=== PATIENT | female | born 1990 | race Caucasian/White ===

== ENCOUNTER 2017-02-13 03:15 | Inpatient (IN) | payer OTHER ==
[2017-02-13] MEDS ORDERED: Sodium Chloride 0.9% 1,000 ML IV STA (03:49)
--- NOTE | 2017-02-13 03:57 | ED PDOC ---
Syncope/Near Syncope/Dizziness Chief Complaint (Provider): Weakness History Per: Patient Additional Complaint(s): PCP: None Chief Complaint: vomiting/ Abdominal pain HPI: 26 years old female with Hx of IDDM, presents to ED with complaint sof feeling weak. Pt was seen at [facility] on the 02/11/17 and subsequently admitted into the ICU for DKA. Pt reports signing out AMA because she was feeling better; however, when she got home she continued to feel weak and nauseous. No fever or chills, no vomiting, diarrhea or SOB. PMH: IDDM PSH: Cesarian Section X2; insulin Pump insertion; Right thigh abscess with I&D in 2006 SH: Light smoker; drinks Alcohol socially; No illegal drug use; live with family FH: no known family hx Allergies: NKDA <Marielle Lucio A - Last Filed: 02/13/17 05:19> <Minor Bishop - Last Filed: 02/14/17 13:54> Time Seen by Provider: 02/13/17 03:40 Chief Complaint (Nursing): Weakness/Neurological Deficit Past Medical History Reviewed: Nursing Documentation, Vital Signs Vital Signs: Last Vital Signs Temp 98.6 F 02/13/17 03:31 Pulse 96 H 02/13/17 03:31 Resp 26 H 02/13/17 03:31 BP 108/64 02/13/17 03:31 Pulse Ox 100 02/13/17 03:31 - Medical History PMH: Diabetes (Type 1) Denies: Chronic Kidney Disease - Surgical History Surgical History: - Family History Family History: States: Unknown Family Hx - Living Arrangements Living Arrangements: With Family - Social History Current smoker - smoking cessation education provided: No Alcohol: Social Drugs: Denies - Immunization History Hx Tetanus Toxoid Vaccination: Yes Hx Influenza Vaccination: No Hx Pneumococcal Vaccination: No <Marielle Lucio A - Last Filed: 02/13/17 05:19> Vital Signs: Last Vital Signs Temp 98.3 F 02/14/17 12:00 Pulse 88 02/14/17 12:00 Resp 13 02/14/17 12:00 BP 121/82 02/14/17 08:00 Pulse Ox 95 02/14/17 08:00 <Minor Bishop Y - Last Filed: 02/14/17 13:54> - Home Medications Home Medications: Ambulatory Orders Medication Instructions Recorded Amoxicillin [Amoxil 500 mg Cap] 500 mg PO BID 02/13/17 Ibuprofen [Motrin Tab] 800 mg PO BID PRN 02/13/17 Insulin Lispro [humALOG] 10 - 20 units SC TIDPC 02/13/17 - Allergies Allergies/Adverse Reactions: Allergies Allergy/AdvReac Type Severity Reaction Status Date / Time No Known Allergies Allergy Verified 02/13/17 03:31 Review of Systems ROS Statement: Except As Marked, All Systems Reviewed And Found Negative Constitutional: Positive for: Weakness Gastrointestinal: Positive for: Nausea <Marielle Lucio - Last Filed: 02/13/17 05:19> Physical Exam - Reviewed Nursing Documentation Reviewed: Yes Vital Signs Reviewed: Yes - Physical Exam Appears: Positive for: Non-toxic, No Acute Distress, Uncomfortable Head Exam: Positive for: ATRAUMATIC, NORMAL INSPECTION, NORMOCEPHALIC Skin: Positive for: Normal Color, Warm, DRY Eye Exam: Positive for: EOMI, Normal appearance, PERRL ENT: Positive for: Normal ENT Inspection Neck: Positive for: Normal, Painless ROM Cardiovascular/Chest: Positive for: Regular Rate, Rhythm Respiratory: Positive for: CNT, Normal Breath Sounds Gastrointestinal/Abdominal: Positive for: Normal Exam, Bowel Sounds, Soft Back: Positive for: Normal Inspection Extremity: Positive for: Normal ROM Neurologic/Psych: Positive for: Alert, Oriented <Marielle Lucio A - Last Filed: 02/13/17 05:19> - Laboratory Results Result Diagrams: 02/13/17 02:43 02/13/17 02:43 - ECG O2 Sat by Pulse Oximetry: 100 <Marielle Lucio A - Last Filed: 02/13/17 05:19> - Laboratory Results Result Diagrams: 02/14/17 04:45 02/14/17 04:45 <Minor Bishop - Last Filed: 02/14/17 13:54> Medical Decision Making Medical Decision Making: IV access established and diagnostics ordered IVF started Finger stick 383 After receiving ABG results, pt started immediately on insulin with drip and fluid hydration. Pt in critical condition requiring ICU placement. DW Dr Roman Hospitalist for ICU and Dr Braun [facility] Service oncall. ED MD made aware <DavidanibalmaryamgaryValerieMarielle A - Last Filed: 02/13/17 05:19> Disposition - Patient ED Disposition Is Patient to be Admitted: Yes - Disposition Disposition Time: 05:20 - POA Present On Arrival: Poor Glycemic Control <Marielle Lucio - Last Filed: 02/13/17 05:19> <Minor Bishop - Last Filed: 02/14/17 13:54> - Clinical Impression Clinical Impression: DKA (diabetic ketoacidoses) - Disposition Condition: STABLE
[2017-02-13 04:48] LABS: BASO # 0.1 K/uL (0.0-0.2); EOS # 0.1 K/uL (0.0-0.7); HEMATOCRIT 39.4 % (34.0-47.0); LYMPH # 1.6 K/uL (1.0-4.3); LYMPH % 23.5 % (20.0-40.0); MEAN CELL VOLUME 95.4 fl (81.0-99.0); MEAN CORPUSCULAR HEMOGLOBIN 29.8 pg (27.0-31.0); MEAN CORPUSCULAR HGB CONC 31.2 g/dL (33.0-37.0); MEAN PLATELET VOLUME 7.4 fl (7.2-11.7); MONO # 0.4 K/uL (0.0-0.8); MONO % 5.9 % (0.0-10.0); NEUT # 4.5 K/uL (1.8-7.0); NEUT % 67.6 % (50.0-75.0); NRBC % 0.1 % (0.0-0.0); RED CELL DISTRIBUTION WIDTH 15.8 % (11.5-14.5); WHITE BLOOD COUNT 6.6 K/uL (4.8-10.8)
[2017-02-13] MEDS ORDERED: Insulin Regular 100 units/ml IV STA (04:59)
[2017-02-13 05:00] LABS: ABG ALLEN TEST YES; ARTERIAL BLOOD GAS HCO3 10.1 mmol/L (21-28); ARTERIAL BLOOD GAS PH 7.21 (7.35-7.45); ARTERIAL BLOOD GAS PO2 127 mm/Hg (80-100)
[2017-02-13 05:01] LABS: POTASSIUM 4.8 MMOL/L (3.6-5.0)
[2017-02-13 05:04] LABS: ALKALINE PHOSPHATASE 127 U/L (38-126); ALT/SGPT 67 U/L (9-52); AST/SGOT 55 U/L (14-36); BILIRUBIN,TOTAL 0.7 mg/dl (0.2-1.3); BLOOD UREA NITROGEN 6 mg/dl (7-17); CALCIUM 8.7 mg/dL (8.4-10.2); GFR AFRICAN-AMERICAN > 60; GLUCOSE,RANDOM 385 mg/dL (65-105); TOTAL PROTEIN 6.8 G/DL (6.3-8.2)
[2017-02-13 05:11] LABS: CARBON DIOXIDE 10 mmol/L (22-30)
[2017-02-13 05:12] LABS: ALB/GLOB RATIO 1.3 (1.0-2.1); CHLORIDE 103 mmol/L (98-107); SODIUM 136 mmol/l (132-148)
[2017-02-13] MEDS ORDERED: Glucagon Recombinant 1 mg Inj IM PRN (06:11)
[2017-02-13] MEDS ORDERED: Dextrose 50% SYRINGE Inj (50 ml) IV PRN (06:11)
--- NOTE | 2017-02-13 06:20 | CP.PCM.CON ---
History of Present Illness - History of Present Illness History of Present Illness: PCP: [facility] Chief Complaint: Generalized weakness HPI: 26 years old female with Hx of IDDM, [facility] She signed AMA on the 02/11/17. She now comes with generalized weakness and nausea. She was being treated for an URI with Amoxicillin prior to being admitted at [facility]. PMH: IDDM PSH: Cesarian Section X2; insulin Pump insertion; Right thigh abscess with I&D in 2006 SH: Light smoker; drinks Alcohol socially; No illegal drug use; live with family FH: no known family hx Allergies: NKDA Review of Systems - Constitutional Constitutional: Weakness. absent: Anorexia, Chills, Fatigue, Fever - EENT Eyes: absent: Diplopia, Floaters, Photophobia, Requires Corrective Lenses Ears: absent: Decreased Hearing, Ear Discharge, Ear Pain, Tinnitus Nose/Mouth/Throat: absent: Epistaxis, Nasal Congestion, Nasal Discharge - Cardiovascular Cardiovascular: absent: Chest Pain, Dyspnea, Edema - Respiratory Respiratory: Cough. absent: Wheezing, Stridor, Chest Congestion - Gastrointestinal Gastrointestinal: Nausea. absent: Constipation, Diarrhea, Vomiting - Genitourinary Genitourinary: absent: Dysuria, Flank Pain, Hematuria, Urinary Frequency - Musculoskeletal Musculoskeletal: Muscle Weakness. absent: Abnormal Gait, Arthralgias, Numbness - Integumentary Integumentary: absent: Pruritus, Rash, Skin Ulcer, Sores, Striae, Swelling - Neurological Neurological: Weakness. absent: Confusion, Dizziness, Focal Weakness, Vertigo - Psychiatric Psychiatric: Depression. absent: Anxiety - Endocrine Endocrine: absent: Palpitations, Polydipsia, Polyphagia, Polyuria - Hematologic/Lymphatic Hematologic: absent: Easy Bleeding, Easy Bruising Past Patient History - Infectious Disease Hx of Infectious Diseases: None - Past Medical History & Family History Past Medical History?: Yes - Past Social History Smoking Status: Never Smoked Chewing Tobacco Use: No Cigar Use: No Alcohol: Social Drugs: Denies Home Situation {Lives}: With Family - CARDIAC Hx Cardiac Disorders: No - PULMONARY Hx Respiratory Disorders: No - NEUROLOGICAL Hx Neurological Disorder: No - HEENT Hx HEENT Problems: No - RENAL Hx Chronic Kidney Disease: No - ENDOCRINE/METABOLIC Hx Endocrine Disorders: Yes Hx Diabetes Mellitus Type 1: Yes - HEMATOLOGICAL/ONCOLOGICAL Hx Blood Disorders: No - INTEGUMENTARY Hx Dermatological Problems: No - MUSCULOSKELETAL/RHEUMATOLOGICAL Hx Falls: No - GASTROINTESTINAL Hx Gastrointestinal Disorders: No - GENITOURINARY/GYNECOLOGICAL Hx Genitourinary Disorders: No - PSYCHIATRIC Hx Substance Use: No - SURGICAL HISTORY Hx Surgeries: Yes Hx Section: Yes (x2) Other/Comment: rt thigh abcess I&D (2006) / insulin pump - ANESTHESIA Hx Anesthesia: Yes Hx Anesthesia Reactions: No Hx Malignant Hyperthermia: No Meds Allergies/Adverse Reactions: Allergies Allergy/AdvReac Type Severity Reaction Status Date / Time No Known Allergies Allergy Verified 02/13/17 03:31 - Medications Medications: Current Medications Dextrose (Dextrose 50% Inj) 0 ml IV STAT PRN; Protocol PRN Reason: Hyglycemia Protocol Dextrose (Glutose 15) 0 gm PO ONCE PRN; Protocol PRN Reason: Hypoglycemia Protocol Glucagon (Glucagen Diagnostic Kit) 0 mg IM STAT PRN; Protocol PRN Reason: Hypoglycemia Protocol Insulin Human Regular 100 (units/ Sodium Chloride) 101 mls @ 0 mls/hr IV .Q0M SUE; Per Protocol PRN Reason: Protocol Physical Exam - Constitutional Appears: No Acute Distress - Head Exam Head Exam: ATRAUMATIC, NORMAL INSPECTION, NORMOCEPHALIC - Eye Exam Eye Exam: EOMI, Normal appearance Pupil Exam: NORMAL ACCOMODATION, PERRL - ENT Exam ENT Exam: Mucous Membranes Moist, Normal Exam, Normal External Ear Exam, Normal Oropharynx - Neck Exam Neck exam: Positive for: Full Rom, Normal Inspection. Negative for: Lymphadenopathy, Tenderness - Respiratory Exam Respiratory Exam: Clear to Auscultation Bilateral. absent: Rales, Rhonchi, Wheezes - Cardiovascular Exam Cardiovascular Exam: REGULAR RHYTHM, RRR, +S1, +S2. absent: Gallop, JVD - GI/Abdominal Exam GI & Abdominal Exam: Normal Bowel Sounds, Soft. absent: Mass, Organomegaly, Tenderness - Rectal Exam Rectal Exam: Deferred - Extremities Exam Extremities exam: Positive for: full ROM, normal inspection. Negative for: calf tenderness, pedal edema - Back Exam Back exam: NORMAL INSPECTION. absent: CVA tenderness (L), CVA tenderness (R) - Neurological Exam Neurological exam: Alert, CN II-XII Intact, Motor Sensory Deficit, Oriented x3, Reflexes Normal - Skin Skin Exam: Dry, Intact, Normal Color, Warm Results - Vital Signs Recent Vital Signs: Last Vital Signs Temp 98.6 F 02/13/17 03:31 Pulse 96 H 02/13/17 03:31 Resp 26 H 02/13/17 03:31 BP 108/64 02/13/17 03:31 Pulse Ox 100 02/13/17 05:21 - Labs Result Diagrams: 02/13/17 02:43 02/13/17 02:43 Assessment & Plan - Assessment and Plan (Free Text) Plan: 26 years old female with Hx of IDDM, [facility] She signed AMA on the 02/11/17. She now comes with generalized weakness and nausea. She was being treated for an URI with Amoxicillin prior to being admitted at [facility]. #. DKA due to non compliance with medication - Admit to ICU - IV Regular Insulin drip according to protocol - Hourly accuchecks - IV Fluid Normal Saline 100mls/hr and Change to D5NS when the Blood Glucose falls below 250mg/dl #. IDDM with hyperglycemia - Teat as above #. Severe AG Metabolic Acidosis - IV Fluids - Treat DKA - Fllow ABG #. DVT prophylaxis with Lovenox #. Code Status: Full - Date & Time Date: 02/13/17 Time: :
[2017-02-13 06:22] LABS: RBC URINE < 1 /hpf (0-3); URINE BILIRUBIN NEGATIVE (NEGATIVE); URINE BLOOD NEGATIVE (NEGATIVE); URINE COLOR YELLOW (YELLOW); URINE GLUCOSE (UA) >=500 mg/dL (Normal); URINE KETONE 80 mg/dL (NEGATIVE); URINE LEUKOCYTE ESTERASE NEG Leu/uL (Negative); URINE PROTEIN 30 mg/dL (NEGATIVE); URINE UROBILINOGEN 0.2-1.0 mg/dL (0.2-1.0); WBC URINE 1 /hpf (0-5)
[2017-02-13] MEDS: Sodium Chloride 0.9% 1,000 ML IV SCH ×2 (06:50→18:25)
[2017-02-13 06:59] VITALS: BMI 20.7
[2017-02-13] MEDS: Enoxaparin 40 mg Syringe SC SCH (08:42)
[2017-02-13 10:37] LABS: VENOUS BLOOD GAS BASE EXCESS -11.9 mmol/L (0.0-2.0); VENOUS BLOOD GAS PCO2 24 mmHg (40-60); VENOUS BLOOD PH 7.32 (7.32-7.43)
[2017-02-13 10:48] LABS: HEMATOCRIT 35.9 % (34.0-47.0); MEAN CELL VOLUME 91.8 fl (81.0-99.0); MEAN CORPUSCULAR HEMOGLOBIN 30.2 pg (27.0-31.0); MEAN CORPUSCULAR HGB CONC 32.9 g/dL (33.0-37.0); RED CELL DISTRIBUTION WIDTH 14.8 % (11.5-14.5); WHITE BLOOD COUNT 6.6 K/uL (4.8-10.8)
[2017-02-13 11:54] LABS: ALB/GLOB RATIO 1.2 (1.0-2.1); ALKALINE PHOSPHATASE 136 U/L (38-126); ALT/SGPT 68 U/L (9-52); AST/SGOT 59 U/L (14-36); BILIRUBIN,TOTAL 0.5 mg/dl (0.2-1.3); BLOOD UREA NITROGEN 5 mg/dl (7-17); CALCIUM 8.4 mg/dL (8.4-10.2); CARBON DIOXIDE 12 mmol/L (22-30); CHLORIDE 106 mmol/L (98-107); GFR AFRICAN-AMERICAN > 60; GLUCOSE,RANDOM 326 mg/dL (65-105); MAGNESIUM 1.6 MG/DL (1.6-2.3); POTASSIUM 3.9 MMOL/L (3.6-5.0); SODIUM 138 mmol/l (132-148); TOTAL PROTEIN 6.4 G/DL (6.3-8.2)
[2017-02-13] MEDS ORDERED: Potassium Phosphate 15 MMOLE in Dextrose 5% In Water 250 ML IV STA (12:08)
[2017-02-13] MEDS ORDERED: Magnesium Sulfate 1 gm in D5W 1 GM/100 ML BAG IVPB ONE (12:08)
[2017-02-13] MEDS: Potassium Chl 40 mEq in D5-NS 1,000 ML IV SCH ×2 (13:57→23:01)
[2017-02-13] MEDS ORDERED: Sodium Chloride 0.9% 500 ML IV ONE (16:45)
[2017-02-13 17:12] LABS: ALKALINE PHOSPHATASE 108 U/L (38-126); ALT/SGPT 62 U/L (9-52); AST/SGOT 59 U/L (14-36); BILIRUBIN,TOTAL 0.2 mg/dl (0.2-1.3); BLOOD UREA NITROGEN 5 mg/dl (7-17); CALCIUM 8.1 mg/dL (8.4-10.2); CARBON DIOXIDE 17 mmol/L (22-30); CHLORIDE 107 mmol/L (98-107); GFR AFRICAN-AMERICAN > 60; GLUCOSE,RANDOM 122 mg/dL (65-105); POTASSIUM 4.1 MMOL/L (3.6-5.0); SODIUM 138 mmol/l (132-148); TOTAL PROTEIN 6.1 G/DL (6.3-8.2)
[2017-02-13 17:18] LABS: ALB/GLOB RATIO 1.1 (1.0-2.1)
--- NOTE | 2017-02-13 17:55 | CON ---
DATE: 02/13/2017 LOCATION: ICU room 431. HISTORY OF PRESENT ILLNESS: This is a 26-year-old female, very well known to me from previous [facility] hospital readmissions in diabetic ketoacidosis and has once again been readmitted now with general ized body weakness and evaluated to be in DKA and is currently receiving vigorous IV hydration and in tensive insulin therapy with an insulin drip infusion as given. PAST MEDICAL HISTORY: History of type 1 insulin-dependent diabetes since early head start director and current ly on a combination of Humalog given at a variable dose of 5-10 units t.i.d. and Levemir given as 10- 20 units at bedtime. No recent home glucose monitoring has been undertaken and the patient has been very poorly adherent to her insulin regimen. She was previously on an insulin pump, which was discon tinued because of insurance constraints. FAMILY HISTORY: Positive for hypertension and diabetes. SOCIAL HISTORY: The patient has 2 very young children and lives with her mother, admits to smoking h césar a pack a day for 7 years now and admits to social use of alcohol. No other illicit drug use. REVIEW OF SYSTEMS: Admits to generalized body weakness with easy fatigability and tiredness and subo ptimal energy level with progressively worsening dizziness and lightheadedness, prompting this admiss ion. No precordial chest pains, but admits to pleuritic right-sided chest pain with progressive shor tness of breath, especially on exertion. Her oral intake is suboptimal and variable with nausea, dys pepsia and episodic vomiting episodes. Also, admits to marked polyuria, nocturia and polydipsia. PHYSICAL EXAMINATION: GENERAL: This is a female in no apparent distress. VITAL SIGNS: Blood pressure of 130/80, pulse of 100 beats per minute and regular, temperature 98, re spirations 20. Height is 5 feet 3 inches, weight is 117 pounds. HEENT: Head normocephalic. Eyes anicteric with pink conjunctivae. Fundoscopy not possible at this time. Ears, nose and throat otherwise normal. NECK: Supple. Thyroid gland is normal size. No carotid bruits. No cervical adenopathy. CARDIOPULMONARY: Some adynamic precordium. S1, S2 rapid and regular. LUNGS: Clear to auscultation. ABDOMEN: Flat, soft with positive bowel sounds. EXTREMITIES: No peripheral edema. Pulses are +2 bilaterally. LABORATORY DATA: The chemistry showed a BUN of 6, sodium 136, potassium 4.8, chloride 103, CO2 is 10 , glucose is 385 and creatinine 0.6. Her glucose levels have ranged from 191 to 343 mg/dL. ASSESSMENT: This is a 26-year-old female with uncontrolled and decompensated type 1 insulin-dependen t diabetes with very poor adherence to her insulin regimen and glucose monitoring, presenting here wi th diabetic ketoacidosis and dehydration with previous readmissions for diabetic ketoacidosis as note d. PLAN OF MANAGEMENT: As discussed with the patient and the staff, we will continue the current insul in drip infusion until her bicarbonate is at least above 15 and we will continue the insulin drip wit h hourly glucose testing to be undertaken. We will also continue the vigorous IV hydration and will obtain serial chemistries and supplement accordingly as needed. As her oral intake is advanced, then we will start her back on more physiologic basal and bolus insulin drug combination as indicated. He moglobin A1c will be done to confirm glycemic control and baseline thyroid function studies tegan l be ordered. We will obtain serial chemistries and supplement accordingly as needed. We will reinf orce diabetic education and dietary instructions at the time of this admission. Johanny Tapia MD cc: [id number] TT: 02/13/2017 17:55:08 Confirmation # [id number] Dictation # [id number] ln
--- NOTE | 2017-02-13 18:30 | HP ---
CHIEF COMPLAINT: Feeling sick. HISTORY OF PRESENT ILLNESS: This is a 26-year-old female, known case of insulin-dependent diabetes w ith multiple admissions to this hospital and other institutions, who was recently discharged from [facility]. Actually, the patient signed against medical advice and then patient went out, started drinking and did not take her insulin and felt sick, so the patient was brought to Emergency Room and was found to be in DKA and was admitted for further management. REVIEW OF SYSTEMS: Positive for generalized malaise, weakness and feeling sick. Review of systems o therwise is negative for headache, dizziness, syncope, loss of consciousness, chest pain, shortness o f breath, nausea, vomiting, diarrhea, constipation, any new joint or extremity pain. Review of syste ms of all other organ systems is unremarkable. PAST MEDICAL HISTORY: Significant for diabetes type 1. PAST SURGICAL HISTORY: Remarkable for insulin pump on the right thigh and section. PERSONAL HISTORY: The patient is currently a nonsmoker, social alcohol drinker. No substance abuse. MEDICATIONS: As per reconciliation sheet, which was reviewed , although patient is noncompliant with insulin. ALLERGIES: The patient is not allergic to any medication. PHYSICAL EXAMINATION: GENERAL: Well-built, well-nourished 26-year-old female in no acute distress. VITAL SIGNS: Temperature afebrile, pulse 88, respiration 18, blood pressure 136/76. HEENT: Pupils reacting to light. No JVD, no thyromegaly, no lymphadenopathy, no nystagmus. Normocep halic, atraumatic skull. HEART: S1, S2 normal, regular. No significant murmur, gallop or rub is heard. LUNGS: Shows good bilateral air exchange. No rales or rhonchi. ABDOMEN: Soft, nontender, no organomegaly, no fluid. Bowel sounds are plus. EXTREMITIES: No edema, no calf swelling, no tenderness, no acute ischemia. CENTRAL NERVOUS SYSTEM: Essentially unchanged. DIAGNOSTIC DATA: Available diagnostic data reviewed. Telemetry monitoring does not reveal significa nt arrhythmias. WBC 6.6, hemoglobin 12.3, hematocrit 39.3, platelets 390. ABG shows pH 7.21, pCO2 16 , pO2 127, saturation 100%. Sodium 136, potassium 3.8, chloride 103, bicarbonate 10, BUN 6, creatini ne 0.6. Accu-Cheks are 385, 338, 306. ALT 55, ALT 66. Urinalysis is negative. Toxicology is negat sylvia. ADMITTING IMPRESSION: Diabetic ketoacidosis, type 1 diabetes. PLAN: As ordered. Case and plan discussed with patient. Case and plan also discussed with intensiv ist. Osmar Braun MD cc: [phone] TT: 02/13/2017 18:29:58 ln
[2017-02-13 23:13] LABS: BLOOD UREA NITROGEN 7 mg/dl (7-17); CALCIUM 8.4 mg/dL (8.4-10.2); CARBON DIOXIDE 20 mmol/L (22-30); CHLORIDE 108 mmol/L (98-107); GFR AFRICAN-AMERICAN > 60; GLUCOSE,RANDOM 118 mg/dL (65-105); PHOSPHOROUS 2.4 mg/dl (2.5-4.5); POTASSIUM 3.8 MMOL/L (3.6-5.0); SODIUM 141 mmol/l (132-148)
[2017-02-13] MEDS ORDERED: Insulin Detemir 100 Units/ml Inj SC STA (23:26)
[2017-02-13] MEDS ORDERED: POTASSIUM PHOSPHATE PO ONE (23:45)
--- NOTE | 2017-02-14 | CARD ---
APPROVED REPORT EKG Measurement Heart [id number] <Conclusion> Sinus tachycardia Nonspecific ST and T wave abnormality Abnormal ECG
[2017-02-14 05:17] LABS: HEMATOCRIT 32.4 % (34.0-47.0); MEAN CORPUSCULAR HEMOGLOBIN 30.2 pg (27.0-31.0); MEAN CORPUSCULAR HGB CONC 32.8 g/dL (33.0-37.0); RED CELL DISTRIBUTION WIDTH 14.8 % (11.5-14.5); WHITE BLOOD COUNT 4.4 K/uL (4.8-10.8)
[2017-02-14 05:28] LABS: ALB/GLOB RATIO 1.2 (1.0-2.1); ALKALINE PHOSPHATASE 99 U/L (38-126); ALT/SGPT 65 U/L (9-52); AST/SGOT 104 U/L (14-36); BLOOD UREA NITROGEN 6 mg/dl (7-17); CALCIUM 8.3 mg/dL (8.4-10.2); CARBON DIOXIDE 18 mmol/L (22-30); CHLORIDE 110 mmol/L (98-107); GFR AFRICAN-AMERICAN > 60; GLUCOSE,RANDOM 168 mg/dL (65-105); PHOSPHOROUS 2.9 mg/dl (2.5-4.5); POTASSIUM 4.4 MMOL/L (3.6-5.0); SODIUM 141 mmol/l (132-148); TOTAL PROTEIN 5.5 G/DL (6.3-8.2)
[2017-02-14 05:55] LABS: THYROID STIMULATING HORMONE 6.62 mIU/ML (0.46-4.68)
[2017-02-14] MEDS: Potassium Chl 40 mEq in D5-NS 1,000 ML IV SCH (06:29)
[2017-02-14] MEDS: Insulin Lispro (humaLOG) 100 Units/ml Inj SC SCH ×5 (06:30→16:36)
[2017-02-14] MEDS ORDERED: Levothyroxine 25 MCG TAB PO SCH (06:30)
--- NOTE | 2017-02-14 06:33 | CP.PCM.DIS ---
Provider - Provider Date of Admission: 02/13/17 05:01 Attending physician: Osmar Braun MD Time Spent in preparation of Discharge (in minutes): 45 Diagnosis - Discharge Diagnosis (1) DKA (diabetic ketoacidoses) Status: Acute Hospital Course - Lab Results Lab Results: Most Recent Lab Values WBC 4.4 K/uL (4.8-10.8) L 02/14/17 04:45 RBC 3.52 Mil/uL (3.80-5.20) L 02/14/17 04:45 Hgb 10.6 g/dL (12.0-16.0) L 02/14/17 04:45 Hct 32.4 % (34.0-47.0) L 02/14/17 04:45 MCV 92.0 fl (81.0-99.0) 02/14/17 04:45 MCH 30.2 pg (27.0-31.0) 02/14/17 04:45 MCHC 32.8 g/dL (33.0-37.0) L 02/14/17 04:45 RDW 14.8 % (11.5-14.5) H 02/14/17 04:45 Plt Count 311 K/uL (130-400) 02/14/17 04:45 MPV 7.4 fl (7.2-11.7) 02/13/17 02:43 Neut % (Auto) 67.6 % (50.0-75.0) 02/13/17 02:43 Lymph % (Auto) 23.5 % (20.0-40.0) 02/13/17 02:43 Will % (Auto) 5.9 % (0.0-10.0) 02/13/17 02:43 Eos % (Auto) 2.0 % (0.0-4.0) 02/13/17 02:43 Baso % (Auto) 1.0 % (0.0-2.0) 02/13/17 02:43 Neut # 4.5 K/uL (1.8-7.0) 02/13/17 02:43 Lymph # 1.6 K/uL (1.0-4.3) 02/13/17 02:43 Will # 0.4 K/uL (0.0-0.8) 02/13/17 02:43 Eos # 0.1 K/uL (0.0-0.7) 02/13/17 02:43 Baso # 0.1 K/uL (0.0-0.2) 02/13/17 02:43 pCO2 16 mm/Hg (35-45) L* 02/13/17 04:54 pO2 56 mm/Hg (30-55) H 02/13/17 10:32 HCO3 10.1 mmol/L (21-28) L 02/13/17 04:54 ABG pH 7.21 (7.35-7.45) L 02/13/17 04:54 ABG Total CO2 6.9 mmol/L (22-28) L 02/13/17 04:54 ABG O2 Saturation 100.0 % (95-98) H 02/13/17 04:54 ABG Base Excess -19.1 mmol/L (-2.0-3.0) L 02/13/17 04:54 Juan Daniel Test Yes 02/13/17 04:54 ABG Potassium 4.0 mmol/L (3.6-5.2) 02/13/17 04:54 VBG pH 7.32 (7.32-7.43) 02/13/17 10:32 VBG pCO2 24 mmHg (40-60) L 02/13/17 10:32 VBG HCO3 15.5 mmol/L 02/13/17 10:32 VBG Total CO2 13.1 mmol/L (22-28) L 02/13/17 10:32 VBG O2 Sat (Calc) 95.2 % (40-65) H 02/13/17 10:32 VBG Base Excess -11.9 mmol/L (0.0-2.0) L 02/13/17 10:32 VBG Potassium 3.7 mmol/L (3.6-5.2) 02/13/17 10:32 A-a O2 Difference 64.0 mm/Hg 02/13/17 10:32 Sodium 130.0 mmol/L (132-148) L 02/13/17 10:32 Chloride 103.0 mmol/L (98-107) 02/13/17 10:32 Glucose 350 mg/dL (65-105) H 02/13/17 10:32 Lactate 3.3 mmol/L (0.7-2.1) H 02/13/17 10:32 FiO2 21.0 % 02/13/17 10:32 Crit Value Called To Naveed dyer pa-c 02/13/17 04:54 Crit Value Called By 302 02/13/17 04:54 Crit Value Read Back Y 02/13/17 04:54 Blood Gas Notified Time 500 02/13/17 04:54 Sodium 141 mmol/l (132-148) 02/14/17 04:45 Potassium 4.4 MMOL/L (3.6-5.0) 02/14/17 04:45 Chloride 110 mmol/L (98-107) H 02/14/17 04:45 Carbon Dioxide 18 mmol/L (22-30) L 02/14/17 04:45 Anion Gap 17 (10-20) 02/14/17 04:45 BUN 6 mg/dl (7-17) L 02/14/17 04:45 Creatinine 0.6 mg/dL (0.7-1.2) L 02/14/17 04:45 Est GFR ( Amer) > 60 02/14/17 04:45 Est GFR (Non-Af Amer) > 60 02/14/17 04:45 POC Glucose (mg/dL) 199 mg/dL (65-110) H 02/14/17 05:33 Random Glucose 168 mg/dL (65-105) H 02/14/17 04:45 Hemoglobin A1c 9.5 % (4.2-6.5) H 02/13/17 16:38 Lactic Acid 4.9 MMOL/L (0.7-2.1) H* 02/13/17 16:38 Calcium 8.3 mg/dL (8.4-10.2) L 02/14/17 04:45 Phosphorus 2.9 mg/dl (2.5-4.5) 02/14/17 04:45 Magnesium 1.9 MG/DL (1.6-2.3) 02/13/17 16:38 Total Bilirubin 0.2 mg/dl (0.2-1.3) 02/13/17 16:38 AST 104 U/L (14-36) H D 02/14/17 04:45 ALT 65 U/L (9-52) H 02/14/17 04:45 Alkaline Phosphatase 99 U/L (38-126) 02/14/17 04:45 Troponin I < 0.0120 ng/mL (0.00-0.120) 02/13/17 10:25 Total Protein 5.5 G/DL (6.3-8.2) L 02/14/17 04:45 Albumin 3.0 g/dL (3.5-5.0) L 02/14/17 04:45 Globulin 2.5 gm/dL (2.2-3.9) 02/14/17 04:45 Albumin/Globulin Ratio 1.2 (1.0-2.1) 02/14/17 04:45 TSH 3rd Generation 6.62 mIU/ML (0.46-4.68) H 02/14/17 04:45 Arterial Blood Potassium 4.0 mmol/L (3.6-5.2) 02/13/17 04:54 Venous Blood Potassium 3.7 mmol/L (3.6-5.2) 02/13/17 10:32 Urine Color Yellow (YELLOW) 02/13/17 06:03 Urine Clarity Slighty-cloudy (Clear) 02/13/17 06:03 Urine pH 6.0 (5.0-8.0) 02/13/17 06:03 Ur Specific [place] 1.023 (1.003-1.030) 02/13/17 06:03 Urine Protein 30 mg/dL (NEGATIVE) 02/13/17 06:03 Urine Glucose (UA) >=500 mg/dL (Normal) 02/13/17 06:03 Urine Ketones 80 mg/dL (NEGATIVE) 02/13/17 06:03 Urine Blood Negative (NEGATIVE) 02/13/17 06:03 Urine Nitrate Negative (NEGATIVE) 02/13/17 06:03 Urine Bilirubin Negative (NEGATIVE) 02/13/17 06:03 Urine Urobilinogen 0.2-1.0 mg/dL (0.2-1.0) 02/13/17 06:03 Ur Leukocyte Esterase Neg Darya/uL (Negative) 02/13/17 06:03 Urine RBC (Auto) < 1 /hpf (0-3) 02/13/17 06:03 Urine Microscopic WBC 1 /hpf (0-5) 02/13/17 06:03 Ur Squamous Epith Cells 2 /hpf (0-5) 02/13/17 06:03 Urine Opiates Screen Negative (NEGATIVE) 02/13/17 06:03 Urine Methadone Screen Negative (NEGATIVE) 02/13/17 06:03 Ur Barbiturates Screen Negative (NEGATIVE) 02/13/17 06:03 Ur Phencyclidine Scrn Negative (NEGATIVE) 02/13/17 06:03 Ur Amphetamines Screen Negative (NEGATIVE) 02/13/17 06:03 U Benzodiazepines Scrn Negative (NEGATIVE) 02/13/17 06:03 U Oth Cocaine Metabols Negative (NEGATIVE) 02/13/17 06:03 U Cannabinoids Screen Negative (NEGATIVE) 02/13/17 06:03 - Hospital Course Hospital Course: Patient seen and examined at bedside with attending. 26F with recurrent DKA which has resolved. Patient is currently asymptomatic and laboratory results are wnl. Dr Tapia has agreed to see her in outpatient setting and the patient has been extensively counseled and taking care of herself to avoid another episode. She is stable for discharge to home with close follow-up. Discharge Exam - Head Exam Head Exam: ATRAUMATIC, NORMAL INSPECTION, NORMOCEPHALIC - Eye Exam Eye Exam: EOMI, PERRL - ENT Exam ENT Exam: Mucous Membranes Moist, Normal Exam - Neck Exam Neck exam: Full Rom, Normal Inspection - Respiratory Exam Respiratory Exam: Clear to PA & Lateral, NORMAL BREATHING PATTERN. absent: Rales - Cardiovascular Exam Cardiovascular Exam: REGULAR RHYTHM, +S1, +S2 - GI/Abdominal Exam GI & Abdominal Exam: Normal Bowel Sounds, Soft. absent: Tenderness - Extremities Exam Extremities exam: full ROM, normal capillary refill, pedal pulses present - Neurological Exam Neurological exam: Alert, Oriented x3 - Psychiatric Exam Psychiatric exam: Normal Affect, Normal Mood - Skin Skin Exam: Normal Color, Warm Discharge Plan - Discharge Medications Prescriptions: Insulin Detemir [Levemir] 20 unit SC HS #1 dev Insulin Lispro [Humalog Kwikpen U-100] 10 unit SQ ACTID #1 [email or web address].pen - Follow Up Plan Condition: STABLE Disposition: HOME/ ROUTINE Patient education suggested?: Yes Instructions: Insulin Detemir (By injection), Insulin Lispro (By injection) Additional Instructions: 1. Call Dr Tapia's (Credit Correspondence Clerk)office for an appointment tomorrow, 02/15 2. Call [facility] for a follow up appt 3. Administer 20U via FlexPen each evening before bed 4. Administer 6-10U via KwikPen before each meal calculated by your meal 5. Keep a glucose log to discuss with Dr Tapia at your visit Referrals: Johanny Tapia MD [Medical Doctor] - 1 Day (Phone# [phone]) [facility] at [facility] [Outside] - 1 Day
[2017-02-14 06:37] LABS: BILIRUBIN,TOTAL 0.1 mg/dl (0.2-1.3)
[2017-02-14] MEDS ORDERED: Magnesium Sulfate 2 gm/50 ml 2 GM/50 ML BAG IVPB ONE (08:05)
--- NOTE | 2017-02-14 09:57 | CP.PCM.PCO ---
Physician Communication Note - Physician Communication Note Physician Communication Note: Patient refused Psychiatry Consult
[2017-02-14] MEDS: Enoxaparin 40 mg Syringe SC SCH (10:14)
--- NOTE | 2017-02-14 15:59 | PN ---
DATE: 02/14/2017 ROOM: 431 ICU. This is a 26-year-old female with recent uncontrolled type 1 insulin-dependent diabetes, presenting h ere with intractable vomiting and supervening diabetic ketoacidosis and dehydration, and is now being followed closely for metabolic management. She received intensive insulin therapy and vigorous IV h ydration as given and has improved clinically and metabolically as noted thereof. Her latest glucose levels today have ranged from 119-120 and 199 mg/dL. It was 179-224 last night as noted. The latest chemistry showed a BUN of 6, sodium 141, potassium 4.4, chloride 110, CO2 is 18, glucose is 168 and creatinine is 0.6. Her TSH level is 6.62 as noted, indicative of early hypothyroi dism which is not surprising in type 1 diabetic patients to have another autoimmune condition. So at this time, will continue the same basal and bolus insulin regimen to allow for dose equilibrati on and keep her on the Levemir given as 20 units subQ at bedtime daily as ordered. Will also keep th e Humalog given as 8 units subQ t.i.d. before meals as given. Will titrate incrementally as indicate d to optimize metabolic control. Will follow and advise accordingly. Johanny Tapia MD cc: [id number] TT: 02/14/2017 15:59:33 Confirmation # [id number] Dictation # [id number] judie
[2017-02-14 16:35] VITALS: BP 126/89; PULSE 90; RESP 14; TEMP 98.5; O2SAT 100
[2017-02-14 17:13] LABS: CORTISOL AM 9.8 ug/dL (4.46-22.7)
--- NOTE | 2017-02-14 18:32 | CP.CCUPN ---
CCU Subjective - Physician Review Events Since Last Encounter (Free Text): 02/14/17 Patient seen and examined, Repeat labs reviewed Doing much better today No new complaints Off insulin drip and continued of hydrations Anion gap closed Initiating the subcutaneous insulin (basal and with meal plusCorrectional scale) Tolerating PO diet Endocrine consult appreciated Mag and Phos supplemented No indications for sodium bicarbonate therapy Acchu check as per protocol Monitor renal function GI/DVT PPX FULL CODE CCU Objective - Vital Signs / Intake & Output Vital Signs (Last 4 hours): Vital Signs Temp Pulse Resp BP Pulse Ox 02/14/17 16:00 98.5 F 90 14 126/89 100 Intake and Output (Last 8hrs): Intake & Output 02/14/17 02/14/17 02/14/17 06:59 14:59 22:59 Intake Total 17 100 Output Total 800 Balance 17 -700 Intake: IV 17 Intake, Piggyback 100 Output: Urine 800 Urine, Voided 800 - Medications Active Medications: Active Medications Generic Name Dose Route Start Last Admin Trade Name Freq PRN Reason Stop Dose Admin Benzonatate 100 mg 02/13/17 20:32 02/13/17 23:52 Tessalon Perles PO 100 mg TID PRN Administration Cough Dextrose 0 ml 02/13/17 06:11 Dextrose 50% Inj IV STAT PRN Hyglycemia Protocol Protocol Dextrose 0 gm 02/13/17 06:11 Glutose 15 PO ONCE PRN Hypoglycemia Protocol Protocol Enoxaparin Sodium 40 mg 02/13/17 09:00 02/14/17 10:14 Lovenox SC Not Given DAILY SUE Protocol Glucagon 0 mg 02/13/17 06:11 Glucagen Diagnostic Kit IM STAT PRN Hypoglycemia Protocol Protocol Insulin Detemir 20 units 02/14/17 22:00 Levemir SC HS SUE Insulin Human Lispro 8 units 02/14/17 07:30 02/14/17 12:46 Humalog SC 8 units AC SUE Administration Insulin Human Lispro 0 units 02/14/17 07:30 02/14/17 16:36 Humalog SC Not Given ACHS SUE Protocol Levothyroxine Sodium 25 mcg 02/14/17 06:30 02/14/17 06:35 Synthroid PO 25 mcg DAILY@0630 SUE Administration Ondansetron HCl 4 mg 02/13/17 06:19 Zofran Inj IVP Q4 PRN Nausea/Vomiting - Patient Studies Lab Studies: Microbiology Studies 02/13/17 06:03 Urine Culture - Preliminary Urine Gram Positive Cocci Lab Studies 02/14/17 02/14/17 02/14/17 Range/Units 16:13 11:24 07:56 WBC (4.8-10.8) K/uL RBC (3.80-5.20) Mil/uL Hgb (12.0-16.0) g/dL Hct (34.0-47.0) % MCV (81.0-99.0) fl MCH (27.0-31.0) pg MCHC (33.0-37.0) g/dL RDW (11.5-14.5) % Plt Count (130-400) K/uL Sodium (132-148) mmol/l Potassium (3.6-5.0) MMOL/L Chloride (98-107) mmol/L Carbon Dioxide (22-30) mmol/L Anion Gap (10-20) BUN (7-17) mg/dl Creatinine (0.7-1.2) mg/dL Est GFR ( Amer) Est GFR (Non-Af Amer) POC Glucose (mg/dL) 102 119 H 120 H (65-110) mg/dL Random Glucose (65-105) mg/dL Hemoglobin A1c (4.2-6.5) % Calcium (8.4-10.2) mg/dL Phosphorus (2.5-4.5) mg/dl Total Bilirubin (0.2-1.3) mg/dl AST (14-36) U/L ALT (9-52) U/L Alkaline Phosphatase (38-126) U/L Total Protein (6.3-8.2) G/DL Albumin (3.5-5.0) g/dL Globulin (2.2-3.9) gm/dL Albumin/Globulin Ratio (1.0-2.1) TSH 3rd Generation (0.46-4.68) mIU/ML Cortisol AM Sample (4.46-22.7) ug/dL 02/14/17 02/14/17 02/14/17 Range/Units 05:33 04:45 04:45 WBC 4.4 L (4.8-10.8) K/uL RBC 3.52 L (3.80-5.20) Mil/uL Hgb 10.6 L (12.0-16.0) g/dL Hct 32.4 L (34.0-47.0) % MCV 92.0 (81.0-99.0) fl MCH 30.2 (27.0-31.0) pg MCHC 32.8 L (33.0-37.0) g/dL RDW 14.8 H (11.5-14.5) % Plt Count 311 (130-400) K/uL Sodium 141 (132-148) mmol/l Potassium 4.4 (3.6-5.0) MMOL/L Chloride 110 H (98-107) mmol/L Carbon Dioxide 18 L (22-30) mmol/L Anion Gap 17 (10-20) BUN 6 L (7-17) mg/dl Creatinine 0.6 L (0.7-1.2) mg/dL Est GFR ( Amer) > 60 Est GFR (Non-Af Amer) > 60 POC Glucose (mg/dL) 199 H (65-110) mg/dL Random Glucose 168 H (65-105) mg/dL Hemoglobin A1c (4.2-6.5) % Calcium 8.3 L (8.4-10.2) mg/dL Phosphorus 2.9 (2.5-4.5) mg/dl Total Bilirubin 0.1 L (0.2-1.3) mg/dl AST 104 H D (14-36) U/L ALT 65 H (9-52) U/L Alkaline Phosphatase 99 (38-126) U/L Total Protein 5.5 L (6.3-8.2) G/DL Albumin 3.0 L (3.5-5.0) g/dL Globulin 2.5 (2.2-3.9) gm/dL Albumin/Globulin Ratio 1.2 (1.0-2.1) TSH 3rd Generation 6.62 H (0.46-4.68) mIU/ML Cortisol AM Sample 9.8 (4.46-22.7) ug/dL 02/14/17 02/14/17 02/14/17 Range/Units 02:54 02:08 00:57 WBC (4.8-10.8) K/uL RBC (3.80-5.20) Mil/uL Hgb (12.0-16.0) g/dL Hct (34.0-47.0) % MCV (81.0-99.0) fl MCH (27.0-31.0) pg MCHC (33.0-37.0) g/dL RDW (11.5-14.5) % Plt Count (130-400) K/uL Sodium (132-148) mmol/l Potassium (3.6-5.0) MMOL/L Chloride (98-107) mmol/L Carbon Dioxide (22-30) mmol/L Anion Gap (10-20) BUN (7-17) mg/dl Creatinine (0.7-1.2) mg/dL Est GFR ( Amer) Est GFR (Non-Af Amer) POC Glucose (mg/dL) 179 H 224 H 246 H (65-110) mg/dL Random Glucose (65-105) mg/dL Hemoglobin A1c (4.2-6.5) % Calcium (8.4-10.2) mg/dL Phosphorus (2.5-4.5) mg/dl Total Bilirubin (0.2-1.3) mg/dl AST (14-36) U/L ALT (9-52) U/L Alkaline Phosphatase (38-126) U/L Total Protein (6.3-8.2) G/DL Albumin (3.5-5.0) g/dL Globulin (2.2-3.9) gm/dL Albumin/Globulin Ratio (1.0-2.1) TSH 3rd Generation (0.46-4.68) mIU/ML Cortisol AM Sample (4.46-22.7) ug/dL 02/14/17 02/13/17 02/13/17 Range/Units 00:04 23:00 22:57 WBC (4.8-10.8) K/uL RBC (3.80-5.20) Mil/uL Hgb (12.0-16.0) g/dL Hct (34.0-47.0) % MCV (81.0-99.0) fl MCH (27.0-31.0) pg MCHC (33.0-37.0) g/dL RDW (11.5-14.5) % Plt Count (130-400) K/uL Sodium 141 (132-148) mmol/l Potassium 3.8 (3.6-5.0) MMOL/L Chloride 108 H (98-107) mmol/L Carbon Dioxide 20 L (22-30) mmol/L Anion Gap 17 (10-20) BUN 7 (7-17) mg/dl Creatinine 0.6 L (0.7-1.2) mg/dL Est GFR ( Amer) > 60 Est GFR (Non-Af Amer) > 60 POC Glucose (mg/dL) 205 H 134 H (65-110) mg/dL Random Glucose 118 H (65-105) mg/dL Hemoglobin A1c (4.2-6.5) % Calcium 8.4 (8.4-10.2) mg/dL Phosphorus 2.4 L (2.5-4.5) mg/dl Total Bilirubin (0.2-1.3) mg/dl AST (14-36) U/L ALT (9-52) U/L Alkaline Phosphatase (38-126) U/L Total Protein (6.3-8.2) G/DL Albumin (3.5-5.0) g/dL Globulin (2.2-3.9) gm/dL Albumin/Globulin Ratio (1.0-2.1) TSH 3rd Generation (0.46-4.68) mIU/ML Cortisol AM Sample (4.46-22.7) ug/dL 02/13/17 02/13/17 02/13/17 Range/Units 22:05 21:11 19:50 WBC (4.8-10.8) K/uL RBC (3.80-5.20) Mil/uL Hgb (12.0-16.0) g/dL Hct (34.0-47.0) % MCV (81.0-99.0) fl MCH (27.0-31.0) pg MCHC (33.0-37.0) g/dL RDW (11.5-14.5) % Plt Count (130-400) K/uL Sodium (132-148) mmol/l Potassium (3.6-5.0) MMOL/L Chloride (98-107) mmol/L Carbon Dioxide (22-30) mmol/L Anion Gap (10-20) BUN (7-17) mg/dl Creatinine (0.7-1.2) mg/dL Est GFR ( Amer) Est GFR (Non-Af Amer) POC Glucose (mg/dL) 111 H 114 H 164 H (65-110) mg/dL Random Glucose (65-105) mg/dL Hemoglobin A1c (4.2-6.5) % Calcium (8.4-10.2) mg/dL Phosphorus (2.5-4.5) mg/dl Total Bilirubin (0.2-1.3) mg/dl AST (14-36) U/L ALT (9-52) U/L Alkaline Phosphatase (38-126) U/L Total Protein (6.3-8.2) G/DL Albumin (3.5-5.0) g/dL Globulin (2.2-3.9) gm/dL Albumin/Globulin Ratio (1.0-2.1) TSH 3rd Generation (0.46-4.68) mIU/ML Cortisol AM Sample (4.46-22.7) ug/dL 02/13/17 02/13/17 02/13/17 Range/Units 18:04 17:13 16:38 WBC (4.8-10.8) K/uL RBC (3.80-5.20) Mil/uL Hgb (12.0-16.0) g/dL Hct (34.0-47.0) % MCV (81.0-99.0) fl MCH (27.0-31.0) pg MCHC (33.0-37.0) g/dL RDW (11.5-14.5) % Plt Count (130-400) K/uL Sodium (132-148) mmol/l Potassium (3.6-5.0) MMOL/L Chloride (98-107) mmol/L Carbon Dioxide (22-30) mmol/L Anion Gap (10-20) BUN (7-17) mg/dl Creatinine (0.7-1.2) mg/dL Est GFR ( Amer) Est GFR (Non-Af Amer) POC Glucose (mg/dL) 229 H 108 (65-110) mg/dL Random Glucose (65-105) mg/dL Hemoglobin A1c 9.5 H (4.2-6.5) % Calcium (8.4-10.2) mg/dL Phosphorus (2.5-4.5) mg/dl Total Bilirubin (0.2-1.3) mg/dl AST (14-36) U/L ALT (9-52) U/L Alkaline Phosphatase (38-126) U/L Total Protein (6.3-8.2) G/DL Albumin (3.5-5.0) g/dL Globulin (2.2-3.9) gm/dL Albumin/Globulin Ratio (1.0-2.1) TSH 3rd Generation (0.46-4.68) mIU/ML Cortisol AM Sample (4.46-22.7) ug/dL Laboratory Results - last 24 hr 02/13/17 02/13/17 02/13/17 16:38 17:13 18:04 WBC RBC Hgb Hct MCV MCH MCHC RDW Plt Count Sodium Potassium Chloride Carbon Dioxide Anion Gap BUN Creatinine Est GFR ( Amer) Est GFR (Non-Af Amer) POC Glucose (mg/dL) 108 229 H Random Glucose Hemoglobin A1c 9.5 H Calcium Phosphorus Total Bilirubin AST ALT Alkaline Phosphatase Total Protein Albumin Globulin Albumin/Globulin Ratio TSH 3rd Generation Cortisol AM Sample 02/13/17 02/13/17 02/13/17 19:50 21:11 22:05 WBC RBC Hgb Hct MCV MCH MCHC RDW Plt Count Sodium Potassium Chloride Carbon Dioxide Anion Gap BUN Creatinine Est GFR ( Amer) Est GFR (Non-Af Amer) POC Glucose (mg/dL) 164 H 114 H 111 H Random Glucose Hemoglobin A1c Calcium Phosphorus Total Bilirubin AST ALT Alkaline Phosphatase Total Protein Albumin Globulin Albumin/Globulin Ratio TSH 3rd Generation Cortisol AM Sample 02/13/17 02/13/17 02/14/17 22:57 23:00 00:04 WBC RBC Hgb Hct MCV MCH MCHC RDW Plt Count Sodium 141 Potassium 3.8 Chloride 108 H Carbon Dioxide 20 L Anion Gap 17 BUN 7 Creatinine 0.6 L Est GFR ( Amer) > 60 Est GFR (Non-Af Amer) > 60 POC Glucose (mg/dL) 134 H 205 H Random Glucose 118 H Hemoglobin A1c Calcium 8.4 Phosphorus 2.4 L Total Bilirubin AST ALT Alkaline Phosphatase Total Protein Albumin Globulin Albumin/Globulin Ratio TSH 3rd Generation Cortisol AM Sample 02/14/17 02/14/17 02/14/17 00:57 02:08 02:54 WBC RBC Hgb Hct MCV MCH MCHC RDW Plt Count Sodium Potassium Chloride Carbon Dioxide Anion Gap BUN Creatinine Est GFR ( Amer) Est GFR (Non-Af Amer) POC Glucose (mg/dL) 246 H 224 H 179 H Random Glucose Hemoglobin A1c Calcium Phosphorus Total Bilirubin AST ALT Alkaline Phosphatase Total Protein Albumin Globulin Albumin/Globulin Ratio TSH 3rd Generation Cortisol AM Sample 02/14/17 02/14/17 02/14/17 04:45 04:45 05:33 WBC 4.4 L RBC 3.52 L Hgb 10.6 L Hct 32.4 L MCV 92.0 MCH 30.2 MCHC 32.8 L RDW 14.8 H Plt Count 311 Sodium 141 Potassium 4.4 Chloride 110 H Carbon Dioxide 18 L Anion Gap 17 BUN 6 L Creatinine 0.6 L Est GFR ( Amer) > 60 Est GFR (Non-Af Amer) > 60 POC Glucose (mg/dL) 199 H Random Glucose 168 H Hemoglobin A1c Calcium 8.3 L Phosphorus 2.9 Total Bilirubin 0.1 L AST 104 H D ALT 65 H Alkaline Phosphatase 99 Total Protein 5.5 L Albumin 3.0 L Globulin 2.5 Albumin/Globulin Ratio 1.2 TSH 3rd Generation 6.62 H Cortisol AM Sample 9.8 02/14/17 02/14/17 02/14/17 07:56 11:24 16:13 WBC RBC Hgb Hct MCV MCH MCHC RDW Plt Count Sodium Potassium Chloride Carbon Dioxide Anion Gap BUN Creatinine Est GFR ( Amer) Est GFR (Non-Af Amer) POC Glucose (mg/dL) 120 H 119 H 102 Random Glucose Hemoglobin A1c Calcium Phosphorus Total Bilirubin AST ALT Alkaline Phosphatase Total Protein Albumin Globulin Albumin/Globulin Ratio TSH 3rd Generation Cortisol AM Sample Fingerstick Blood Sugar Results: 102 Critical Care Progress Note - Nutrition Nutrition: Nutrition Category Date Time Status Diabetic [Consistent Carbohydrate] [DIET] Diets 02/13/17 Breakfast Active Assessment/Plan (1) DKA (diabetic ketoacidoses) Current Visit: Yes Status: Acute (2) Abnormal liver function tests Current Visit: No Status: Acute (3) Bronchitis Current Visit: No Status: Acute (4) Hyperglycemia due to type 1 diabetes mellitus Current Visit: No Status: Acute
[2017-02-14] MEDS ORDERED: Insulin Detemir 100 Units/ml Inj SC SCH (22:00)
--- NOTE | 2017-02-15 08:26 | CARD ---
APPROVED REPORT EKG Measurement Heart [id number] <Conclusion> Normal sinus rhythm Normal ECG
== END 2017-02-14 17:00 | disposition home or self-care (01) | DRG 295 ==
LOC: H.ER 03:15 → H.ERHOLD 05:01 → H.ICU/CCU 06:35
PROVIDERS: ADMIT Internal Medicine; ATTEND Internal Medicine
DX: E10.10 Type 1 diabetes mellitus with ketoacidosis without coma (principal); E86.0 Dehydration; R00.0 Tachycardia, unspecified; Z91.14 Patient's other noncompliance with medication regimen; Z96.41 Presence of insulin pump (external) (internal); Z79.4 Long term (current) use of insulin; R79.89 Other specified abnormal findings of blood chemistry